=== PATIENT | female | born 1945 | race Caucasian/White ===

== ENCOUNTER 2022-02-27 11:18 | Day surgery (SDC) | payer MEDICARE ==
[~2022-02-27] VITALS: Ht 160 cm; Wt 57.3 kg
[~2022-02-27 11:18] MED LIST: CITA20TA6 PO; DONE5TAB82 PO; LIDOCAINE 2% 100MG/5ML SDV (FOR ANES.) As Ordered ONE; LR 1,000 ML IV SCH; METH2.5T48 PO; MIDAZOLAM INJ 2MG/2ML VIAL (J2250 PER 1MG) As Ordered ONE; QUET1TAB17 PO; VITAMIN B12 SQ; ceFAZolin SOD 2 GM in IV 1 EA IV ONE; propofoL 200 MG/20 ML VIAL As Ordered ONE
[2022-02-27] MEDS ORDERED: ECOT81TA5 PO (12:34)
[2022-02-27] MEDS ORDERED: LR 1,000 ML IV SCH (12:35)
[2022-02-27] MEDS ORDERED: BACITRACIN OINTMENT 30GM TUBE As Ordered ONE (13:11)
[2022-02-27] MEDS ORDERED: LIDOCAINE 1% MDV 20ML VIAL As Ordered ONE (13:11)
[2022-02-27] MEDS ORDERED: propofoL 200 MG/20 ML VIAL As Ordered ONE (14:34)
[2022-02-27 15:58] VITALS: BP 125/61
== END 2022-02-27 16:02 | disposition home or self-care (01) ==
LOC: M SDC 11:18
PROVIDERS: ATTEND Internal Medicine Cardiovascular Disease
DX: Z45.010 Encounter for checking and testing of cardiac pacemaker pulse generator [battery] (principal); M06.9 Rheumatoid arthritis, unspecified; F03.90 Unspecified dementia, unspecified severity, without behavioral disturbance, psychotic disturbance, mood disturbance, and anxiety; Z79.899 Other long term (current) drug therapy; Z88.8 Allergy status to other drugs, medicaments and biological substances; Z87.891 Personal history of nicotine dependence
CPT/HCPCS: 33228; 87635; C1785; J0690

== ENCOUNTER 2025-05-30 02:09 | Inpatient (IN) | payer MEDICARE, MEDICAID ==
[~2025-05-30] VITALS: Ht 157.5 cm; Wt 62.7 kg
[~2025-05-30 02:09] MED LIST changes: +ECOT81TA5 PO; -LIDOCAINE 2% 100MG/5ML SDV (FOR ANES.) As Ordered ONE; -LR 1,000 ML IV SCH; -MIDAZOLAM INJ 2MG/2ML VIAL (J2250 PER 1MG) As Ordered ONE; -ceFAZolin SOD 2 GM in IV 1 EA IV ONE; -propofoL 200 MG/20 ML VIAL As Ordered ONE
[2025-05-30 11:30] VITALS: BP 114/54; TEMP 98.3; O2SAT 94
[2025-05-30] MEDS ORDERED: FERR325T3 PO (12:10)
[2025-05-30] MEDS ORDERED: HOME MED LIST COMPLETE! XX SCH (12:15)
[2025-05-30] MEDS ORDERED: MORPHINE 4 MG/ML 1 ML VIAL IV PRN (12:25)
[2025-05-30 13:03] LABS: PLATELET COUNT, AUTOMATED 183 10^3/uL (150-450)
[2025-05-30 13:40] LABS: ALT/SGPT 49.0 U/L (7.0-40); AST/SGOT 59.0 U/L (<34); CALCIUM LEVEL 7.8 MG/DL (8.3-10.6); CARBON DIOXIDE LEVEL 26.0 MMOL/L (20-31); CHLORIDE LEVEL 107.0 MMOL/L (98-107); CREATININE FOR GFR 0.83 MG/DL (0.55-1.30); GLOMERULAR FILTRATION RATE 72.1 (>39); POTASSIUM SERUM 4.3 MMOL/L (3.5-5.1); SODIUM LEVEL 142.0 MMOL/L (136-145)
[2025-05-30 20:45] VITALS: BP 118/62; TEMP 98.1; O2SAT 93
[2025-05-30] MEDS: DONEPEZIL 5 MG TAB PO SCH (20:48)
[2025-05-30] MEDS: ASPIRIN 81 MG ENTERIC TABLET PO SCH (20:48)
[2025-05-30] MEDS: HEPARIN SOD 5000 UNITS/ML 1 ML VIAL/SYRINGE SC SCH (22:00)
[2025-05-31] MEDS: ceFAZolin SODIUM 2 GM in DEXTROSE 5% (D5W) ADV/MINI-BAG 50 ML IV SCH (01:00)
[2025-05-31 04:28] VITALS: BP 150/69; TEMP 98.7; O2SAT 96
[2025-05-31 06:39] LABS: PLATELET COUNT, AUTOMATED 178 10^3/uL (150-450)
[2025-05-31 07:05] LABS: CALCIUM LEVEL 8.1 MG/DL (8.3-10.6); CARBON DIOXIDE LEVEL 28.0 MMOL/L (20-31); CHLORIDE LEVEL 106.0 MMOL/L (98-107); CREATININE FOR GFR 0.73 MG/DL (0.55-1.30); GLOMERULAR FILTRATION RATE 84.1 (>39); POTASSIUM SERUM 4.2 MMOL/L (3.5-5.1); SODIUM LEVEL 142.0 MMOL/L (136-145)
[2025-05-31 11:50] VITALS: BP 148/68; TEMP 98.2; O2SAT 96
[2025-05-31] MEDS ORDERED: LIDOCAINE 2% 100 MG/5 ML SDV (FOR ANES.) As Ordered ONE (15:12)
[2025-05-31] MEDS ORDERED: KETOROLAC 30 MG/ML 1 ML VIAL As Ordered ONE (15:13)
[2025-05-31] MEDS ORDERED: dexAMETHasone 4 MG/ML 1 ML VIAL As Ordered ONE (15:13)
[2025-05-31] MEDS ORDERED: ONDANSETRON 4MG/2ML VIAL As Ordered ONE (15:13)
[2025-05-31] MEDS ORDERED: ROCURONIUM BROMIDE 50MG/5ML VIAL As Ordered ONE (16:50)
[2025-05-31] MEDS: TRANEXAMIC ACID 100 MG/ML 10ML VIAL As Ordered ONE (17:13)
[2025-05-31] MEDS ORDERED: LABETALOL 100 MG/20 ML VIAL As Ordered ONE (17:33)
[2025-05-31] MEDS ORDERED: ACETAMINOPHEN 1000MG/100ML IV BAG As Ordered ONE (17:47)
[2025-05-31] MEDS: VANCOMYCIN 1000MG/20ML VIAL As Ordered ONE (18:35)
[2025-05-31] MEDS ORDERED: SUGAMMADEX SODIUM 200 MG/2 ML VIAL As Ordered ONE (18:49)
[2025-05-31] MEDS ORDERED: ONDANSETRON 4MG/2ML VIAL IV PRN (19:10)
[2025-05-31] MEDS ORDERED: HYDROMORPHONE HCL 0.5 MG/0.5 ML SYRINGE IV PRN ×2 (19:10→19:25)
[2025-05-31 20:06] VITALS: BP 109/55; TEMP 97.7; O2SAT 97
[2025-05-31] MEDS: FERROUS SULFATE 325 MG TAB PO SCH (20:25)
[2025-05-31 21:38] VITALS: BP 102/53; TEMP 98.2; O2SAT 96
[2025-06-01 00:01] VITALS: BP 99/72; TEMP 98; O2SAT 94
[2025-06-01] MEDS: ceFAZolin SODIUM 2 GM in DEXTROSE 5% (D5W) ADV/MINI-BAG 50 ML IV SCH (01:42)
[2025-06-01 04:02] VITALS: BP 126/61; TEMP 97.9; O2SAT 91
[2025-06-01 07:19] LABS: PLATELET COUNT, AUTOMATED 156 10^3/uL (150-450)
[2025-06-01 07:35] LABS: CALCIUM LEVEL 8.3 MG/DL (8.3-10.6); CARBON DIOXIDE LEVEL 28.0 MMOL/L (20-31); CHLORIDE LEVEL 109.0 MMOL/L (98-107); CREATININE FOR GFR 0.8 MG/DL (0.55-1.30); GLOMERULAR FILTRATION RATE 75.4 (>39); POTASSIUM SERUM 4.2 MMOL/L (3.5-5.1); SODIUM LEVEL 146.0 MMOL/L (136-145)
[2025-06-01 08:05] VITALS: BP 112/54; TEMP 98.3; O2SAT 92
[2025-06-01] MEDS: LR 1,000 ML IV SCH (08:50)
[2025-06-01 12:11] VITALS: BP 103/51; TEMP 98.6; O2SAT 90
[2025-06-01 16:46] VITALS: BP 115/85; TEMP 98.7; O2SAT 94
[2025-06-01 18:46] LABS: KETONE, URINE AUTO RFX NEGATIVE (NEGATIVE); LEUKOCYTE ESTERASE UR AUTO RFX 2+ (NEGATIVE); MUCUS, URINE RFX SMALL (NEGATIVE); NITRITE, URINE AUTO RFX NEGATIVE (NEGATIVE); RBC, URINE AUTO RFX 29 /HPF (0-3); SQUAM EPITHELIAL CELL UR AURFX 0 /HPF (0-6); WBC, URINE AUTO RFX TNTC /HPF (0-3)
[2025-06-01 21:29] VITALS: BP 113/52; TEMP 98; O2SAT 92
[2025-06-02 05:04] VITALS: BP 123/56; TEMP 98.3; O2SAT 94
[2025-06-02 07:09] LABS: PLATELET COUNT, AUTOMATED 185 10^3/uL (150-450)
[2025-06-02 07:30] LABS: CALCIUM LEVEL 7.5 MG/DL (8.3-10.6); CARBON DIOXIDE LEVEL 29.0 MMOL/L (20-31); CHLORIDE LEVEL 107.0 MMOL/L (98-107); CREATININE FOR GFR 0.75 MG/DL (0.55-1.30); GLOMERULAR FILTRATION RATE 81.4 (>39); POTASSIUM SERUM 3.8 MMOL/L (3.5-5.1); SODIUM LEVEL 144.0 MMOL/L (136-145)
[2025-06-02] MEDS: CEFDINIR 300 MG CAP PO SCH (08:07)
[2025-06-02] MEDS: MIRALAX *UNIT DOSE* 17 GM PACKET PO SCH (08:19)
[2025-06-02] MEDS: SENNOSIDES/DOCUSATE SODIUM 8.6 MG/50MG TAB PO SCH (08:19)
[2025-06-02 12:00] VITALS: BP 122/59; TEMP 98.8; O2SAT 93
[2025-06-02 19:47] VITALS: BP 130/59; TEMP 98.4; O2SAT 91
[2025-06-03 00:15] VITALS: BP 147/64; TEMP 98; O2SAT 92
[2025-06-03 03:38] VITALS: BP 139/63; TEMP 98.3; O2SAT 100
[2025-06-03 06:45] LABS: PLATELET COUNT, AUTOMATED 205 10^3/uL (150-450)
[2025-06-03 07:09] LABS: CALCIUM LEVEL 7.6 MG/DL (8.3-10.6); CARBON DIOXIDE LEVEL 28 MMOL/L (20-31); CHLORIDE LEVEL 109 MMOL/L (98-107); CREATININE FOR GFR 0.64 MG/DL (0.55-1.30); GLOMERULAR FILTRATION RATE > 90.0 (>39); POTASSIUM SERUM 3.8 MMOL/L (3.5-5.1); SODIUM LEVEL 146 MMOL/L (136-145)
[2025-06-04 04:52] VITALS: BP 137/63; TEMP 98.2; O2SAT 93
[2025-06-05 05:23] VITALS: BP 154/67; TEMP 98; O2SAT 95
[2025-06-05 12:00] VITALS: BP 102/67; TEMP 98.6; O2SAT 94
[2025-06-05] MEDS: AMOXICILLIN 500 MG CAP PO SCH (14:09)
[2025-06-05] MEDS ORDERED: AMOXICILLIN SUSP 250 MG/5 ML 100ML BOTTLE PO SCH (21:00)
[2025-06-05 22:30] VITALS: TEMP 100.4
[2025-06-05] MEDS: ACETAMINOPHEN 325 MG TAB PO PRN (22:54)
[2025-06-05 23:54] VITALS: TEMP 99
[2025-06-06 05:23] VITALS: BP 137/94; TEMP 98.8; O2SAT 94
[2025-06-06 05:35] LABS: KETONE, URINE AUTO RFX NEGATIVE (NEGATIVE); LEUKOCYTE ESTERASE UR AUTO RFX NEGATIVE (NEGATIVE); NITRITE, URINE AUTO RFX NEGATIVE (NEGATIVE); RBC, URINE AUTO RFX 3 /HPF (0-3); SQUAM EPITHELIAL CELL UR AURFX 6 /HPF (0-6); WBC, URINE AUTO RFX 1 /HPF (0-3)
[2025-06-07 05:06] VITALS: BP 137/65; TEMP 98.7; O2SAT 95
[2025-06-08 04:09] VITALS: BP 128/75; TEMP 98.6; O2SAT 95
[2025-06-08] MEDS ORDERED: MIRA33506 PO (15:13)
[2025-06-08] MEDS ORDERED: DOCU8.6T PO (15:13)
[2025-06-09 04:26] VITALS: BP 125/60; TEMP 98.7; O2SAT 93
== END 2025-06-09 11:09 | DRG 522 ==
LOC: M MSPAV 02:10
PROVIDERS: ADMIT Student in an Organized Health Care Education/Training Program; ATTEND Internal Medicine
PROC: 0SRR0J9 Replacement of Right Hip Joint, Femoral Surface with Synthetic Substitute, Cemented, Open Approach (ICD-10-PCS; principal; 2025-05-31 07:30)
DX: S72.001A Fracture of unspecified part of neck of right femur, initial encounter for closed fracture (principal); N39.0 Urinary tract infection, site not specified; T83.511A Infection and inflammatory reaction due to indwelling urethral catheter, initial encounter; F03.90 Unspecified dementia, unspecified severity, without behavioral disturbance, psychotic disturbance, mood disturbance, and anxiety; F39 Unspecified mood [affective] disorder; D50.9 Iron deficiency anemia, unspecified; R33.9 Retention of urine, unspecified; R13.10 Dysphagia, unspecified; W18.30XA Fall on same level, unspecified, initial encounter; Y92.009 Unspecified place in unspecified non-institutional (private) residence as the place of occurrence of the external cause; Z85.828 Personal history of other malignant neoplasm of skin; Z79.82 Long term (current) use of aspirin; Z79.899 Other long term (current) drug therapy; Z88.8 Allergy status to other drugs, medicaments and biological substances; Y84.6 Urinary catheterization as the cause of abnormal reaction of the patient, or of later complication, without mention of misadventure at the time of the procedure

== ENCOUNTER → 2025-06-16 | Outpatient (CLI) | payer MEDICARE, MEDICAID ==
[~2025-06-16] MED LIST changes: +DOCU8.6T PO; +FERR325T3 PO; +MIRA33506 PO
== END ==
LOC: M SOG 08:04
PROVIDERS: ATTEND Physician Assistant
DX: S72.001A Fracture of unspecified part of neck of right femur, initial encounter for closed fracture (principal)

== ENCOUNTER → 2025-06-20 | Outpatient (CLI) | payer MEDICARE, MEDICAID ==
[~2025-06-20] MED LIST changes: -DOCU8.6T PO; +SENN-208 PO
== END ==
LOC: M SOG 07:36
PROVIDERS: ATTEND Physician Assistant
DX: S72.001A Fracture of unspecified part of neck of right femur, initial encounter for closed fracture (principal)

== ENCOUNTER → 2025-07-12 | Outpatient (CLI) | payer MEDICARE, MEDICAID | LOC: M SOG 07:46 | PROVIDERS: ATTEND Physician Assistant | DX: S72.001A Fracture of unspecified part of neck of right femur, initial encounter for closed fracture (principal) ==